=== PATIENT | female | born 1975 | race Caucasian/White ===

== ENCOUNTER → 2016-10-12 | Outpatient (CLI) | payer BC ==
[2016-10-12 11:58] LABS: THYROID STIMULATING HORMONE 3.63 uIu/ml (0.300-4.500)
== END | disposition home or self-care (01) ==
LOC: C.LAB 08:29
PROVIDERS: ATTEND Internal Medicine Endocrinology, Diabetes & Metabolism
DX: E89.0 Postprocedural hypothyroidism (principal)

== ENCOUNTER → 2016-11-23 | Outpatient (CLI) | payer BC ==
--- NOTE | 2016-11-23 08:18 | DIAGNOSTIC IMAGING REPORT ---
ULTRASOUND OF THE THYROID GLAND CLINICAL HISTORY: Thyroid cancer status post left-sided thyroidectomy. COMPARISON STUDY: Thyroid ultrasound dated 11/23/2013. TECHNIQUE: Real-time, grayscale, and color flow sonography of the thyroid gland is performed utilizing a high-frequency linear transducer. Images are reviewed in the transverse and longitudinal planes. FINDINGS: Right lobe: The right lobe of the thyroid gland is normal in size and slightly heterogeneous in echotexture, measuring 4.8 x 1.4 x 1.9 cm. No lesions identified within the right thyroid lobe. Left lobe: Surgically absent. There is no evidence of recurrent or residual thyroid tissue in the operative bed Isthmus: The remaining thyroid isthmus appears atrophic and measures up to 0.2 cm in AP diameter. Soft tissues: No regional lymphadenopathy is identified. IMPRESSION: 1. The left thyroid lobe is surgically absent. No recurrent/residual soft tissue is identified in the operative bed. 2. The right thyroid lobe appears slightly heterogeneous but is otherwise normal in appearance. 3. No regional lymphadenopathy is seen. Electronically signed by: Alexey Martinez M.D. 11/23/2016 8:16 AM Dictated Date/Time: 11/23/2016 8:14 AM
== END | disposition home or self-care (01) ==
LOC: C.ULTR 07:36
PROVIDERS: ATTEND Physician Assistant
DX: E89.0 Postprocedural hypothyroidism (principal); C73 Malignant neoplasm of thyroid gland

== ENCOUNTER → 2016-12-14 | Outpatient (CLI) | payer BC ==
[2016-12-14 17:13] LABS: THYROID STIMULATING HORMONE 0.693 uIu/ml (0.300-4.500)
== END | disposition home or self-care (01) ==
LOC: C.LAB 15:14
PROVIDERS: ATTEND Physician Assistant
DX: E89.0 Postprocedural hypothyroidism (principal)

== ENCOUNTER → 2016-12-21 | Outpatient (CLI) | payer BC ==
--- NOTE | 2016-12-21 14:26 | MAMMOGRAPHY REPORT ---
BILATERAL DIGITAL DIAGNOSTIC MAMMOGRAM TOMOSYNTHESIS WITH CAD AND TARGETED BILATERAL ULTRASOUND: 12/21 CLINICAL HISTORY: 41-year-old woman presents for bilateral screening mammography and to follow-up be nign-appearing solid versus cystic masses throughout the right breast. TECHNIQUE: Breast tomosynthesis in addition to standard 2D mammography was performed. Current study was also evaluated with a Computer Aided Detection (CAD) system. COMPARISON: Comparison is made to exams dated: 06/23/2016 ultrasound, 06/23/2016 mammogram, 11/01/2015 ultrasound, 11/01/2015 mammogram, and 09/27/2015 mammogram - [facility]. BREAST COMPOSITION: The tissue of both breasts is heterogeneously dense, which may obscure small ma sses. FINDINGS: There are multiple bilateral circumscribed masses scattered throughout the breasts, many o f which appear similar in size comparing to prior mammograms. In particular, 2 circumscribed oval m asses in the medial right breast appears stable dating back to 09/27/2015. There are scattered bila teral benign-appearing punctate microcalcifications. No suspicious spiculated or irregular mass, ar chitectural distortion or cluster of suspicious microcalcifications is seen. Targeted ultrasound was performed throughout the left superior breast and right breast. In the 12:0 0 periareolar right breast, there is a hypoechoic solid lobulated circumscribed mass measuring 5.6 x 4.9 x 7.8 mm, previously 6.9 x 6.5 mm. In the 1:00 right breast, 4 cm from the nipple, a hypoechoi c solid-appearing lobulated and circumscribed mass measures 5.7 x 5.5 x 5.5 mm, previously 6.9 x 6.5 mm. Another hypoechoic solid versus cystic mass in the 2:00 right breast, 2 cm from the nipple, me asures 5.2 x 4.9 x 5.1 mm, previously 5.5 x 5.2 mm and labeled 3:00 right breast, 3 cm from the nipp le. A dominant circumscribed parallel hypoechoic solid mass in the 5:00 right breast, 6 cm from the nipple, measures 12.7 x 9.0 x 10.1 mm, this previously measured 12.4 x 7.0 x 12.7 mm on 11/01/2015. Another hypoechoic solid versus cystic mass in the 6:00 right breast, 1 cm from the nipple measure s 4.6 x 4.6 x 4.3 mm, previously 5.5 x 6.3 mm. A cystic lobulated mass in the 9:00 right breast, 7 cm from the nipple, measures 8.8 x 6.0 x 9.6 mm. Other anechoic benign simple cysts are identified throughout the 10:00 and 8:00 axes. There is an isoechoic circumscribed solid appearing mass in the 10:00 right breast, 7 cm from the nipple, measuring 6.1 x 3.3 x 6.8 mm. In the left 9:00 and 10:00 axes, no discrete solid or cystic mass is seen. In the 12:00 left breast , 2 cm from the nipple, there is a circumscribed parallel nearly anechoic cystic appearing mass valeriy uring 4.8 x 3.2 mm. In the 1:00 left breast, 5 cm from the nipple, a lobulated anechoic benign simp le cyst measures 6.3 x 4.6 mm. In the 1:30 left breast, 6 cm from the nipple, a circumscribed hypoe choic cystic-appearing mass measures 8.4 x 6.2 x 9.3 mm. Another anechoic simple cyst is identified in the 1:30 left breast, 6 cm from the nipple, measuring 5.7 mm. All of the masses identified in t he left breast appear clearly cystic in nature and most compatible with fibrocystic changes. IMPRESSION: ACR-BI-RADS CATEGORY 3: PROBABLY BENIGN, TARGETED ULTRASOUND ACR-BI-RADS CATEGORY 3: MO OBABLY BENIGN There are probable fibrocystic changes bilaterally in the breasts. However within the right breast, there are a few benign appearing solid masses. All of the masses documented within the right breas t including the 10:00, 12:00, 1:00, 2:00, 3:00, 5:00 and 6:00 axes appear stable to decreased in siz e, therefore most likely benign. However given the possible solid nature, at least 2 years of stabi lity are needed to confirm benignity, and another 12 month follow-up targeted ultrasound is recommen ded. Bilateral screening mammography is also due at that time and tomosynthesis images are recommen ded, given the multiple bilateral masses and heterogeneously dense breasts. These results and recommendations were discussed with the patient at the time of the exam. Approximately 10% of breast cancers are not detected with mammography. A negative mammographic repor t should not delay biopsy if a clinically suggestive mass is present. Cathryn Prado M.D. ay/:12/21/2016 12:47:48 Boom Cat Operator: Leann Adames, [facility] letter sent: Follow Up Recommended 3 BI-RADS Code: ACR-BI-RADS Category 3: Probably Benign Ultrasound BI-RADS: ACR-BI-RADS Category 3: P robably Benign
== END | disposition home or self-care (01) ==
LOC: C.MAMM 08:40
PROVIDERS: ATTEND Family Medicine
DX: N63 Unspecified lump in breast (principal)

== ENCOUNTER → 2017-04-15 | Outpatient (CLI) | payer BC ==
[2017-04-15 11:35] LABS: THYROID STIMULATING HORMONE 1.52 uIu/ml (0.300-4.500)
== END | disposition home or self-care (01) ==
LOC: C.LAB 09:49
PROVIDERS: ATTEND Physician Assistant
DX: E89.0 Postprocedural hypothyroidism (principal)

== ENCOUNTER → 2017-05-25 | Outpatient (CLI) | payer OTHER, BC ==
--- NOTE | 2017-05-25 16:21 | DIAGNOSTIC IMAGING REPORT ---
L FOOT MIN 3 VIEWS ROUTINE CLINICAL HISTORY: Left foot pain status post trauma COMPARISON: None DISCUSSION: There is a comminuted fracture involving the tuft of the distal phalanx of the fourth toe. Fracture fragments are distracted x 3 mm. There is no dislocation. There is Achilles insertional spurring IMPRESSION: Comminuted fracture involving the tuft of the distal phalanx of the fourth toe. Electronically signed by: Deric Proctor M.D. 05/25/2017 4:20 PM Dictated Date/Time: 05/25/2017 4:19 PM
== END | disposition home or self-care (01) ==
LOC: C.RAD1850 15:50
PROVIDERS: ATTEND Nurse Practitioner Adult Health
DX: S92.532A Displaced fracture of distal phalanx of left lesser toe(s), initial encounter for closed fracture (principal); X58.XXXA Exposure to other specified factors, initial encounter

== ENCOUNTER → 2017-06-02 | Outpatient (CLI) | payer OTHER, BC ==
--- NOTE | 2017-06-02 09:19 | DIAGNOSTIC IMAGING REPORT ---
L TOE(S) MIN 2 VIEWS HISTORY: 41 years-old Female LEFT 4TH TOE FX fracture of the left fourth toe. Follow-up study. COMPARISON: Left foot radiographs 05/25/2017 TECHNIQUE: 3 views of the left fourth toe FINDINGS: Comminuted fracture involving the tuft of the fourth distal phalanx is again seen with approximately 1 mm distal displacement and 2 mm medial displacement. Moderate associated soft tissue swelling. No significant healing compared to the prior study of 05/25/2017. No additional acute fracture or dislocation. IMPRESSION: No change or significant healing identified involving the comminuted mildly displaced fracture of the fourth distal phalangeal tuft. The above report was generated using voice recognition software. It may contain grammatical, syntax or spelling errors. Electronically signed by: Kamron Elizabeth M.D. 06/02/2017 9:18 AM Dictated Date/Time: 06/02/2017 9:16 AM
== END | disposition home or self-care (01) ==
LOC: C.RDSM 12:06
PROVIDERS: ATTEND Physician Assistant
DX: S92.535A Nondisplaced fracture of distal phalanx of left lesser toe(s), initial encounter for closed fracture (principal); X58.XXXA Exposure to other specified factors, initial encounter

== ENCOUNTER → 2017-07-02 | Outpatient (CLI) | payer OTHER, BC ==
--- NOTE | 2017-07-02 15:01 | DIAGNOSTIC IMAGING REPORT ---
L TOE(S) MIN 2 VIEWS CLINICAL HISTORY: 41 years-old Female presenting with F/U LEFT 4TH TOE FX. TECHNIQUE: Frontal, oblique, and lateral views of the left fourth toe were obtained. COMPARISON: 06/02/2017. FINDINGS: Moderate comminuted fracture of the distal phalanx of the left fourth toe. Fragmentation primarily involves the tuft though a small osseous fragment is also evident along the lateral base. Mild soft tissue swelling likely present. No malalignment at the distal interphalangeal joint. IMPRESSION: Comminuted fracture of the distal phalanx of the left fourth toe. No malalignment at the DIP. Electronically signed by: Eliot Garcia M.D. 07/02/2017 3:00 PM Dictated Date/Time: 07/02/2017 2:58 PM
== END | disposition home or self-care (01) ==
LOC: C.RDSM 10:30
PROVIDERS: ATTEND Physician Assistant
DX: S92.532D Displaced fracture of distal phalanx of left lesser toe(s), subsequent encounter for fracture with routine healing (principal); X58.XXXD Exposure to other specified factors, subsequent encounter

== ENCOUNTER 2017-07-28 17:01 | Emergency (ER) | payer OTHER, BC ==
[~2017-07-28] VITALS: Ht 167.6 cm; Wt 92.7 kg
[2017-07-28 17:16] VITALS: TEMP 36.9; Ht 167.6 cm; Wt 92.7 kg
[2017-07-28] MEDS ORDERED: LIDOCAINE/EPINEPHRINE 1% 20 ML VIAL INFIL STA (17:29)
[2017-07-28] MEDS ORDERED: DIPHTHERIA/TETANUS/PERTUSSIS 0.5 ML SYR/VIAL IM. ONE (17:30)
[2017-07-28] MEDS ORDERED: LEVO100T PO (17:51)
--- NOTE | 2017-07-28 18:37 | EMERGENCY ROOM VISIT NOTE ---
ED Visit Note First contact with patient: 17:19 2CHIEF COMPLAINT: Hand laceration HISTORY OF PRESENT ILLNESS: This 42-year-old female patient presents to the emergency department approximately one hour after cutting the left posterior hand at work. 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 She states her hand slipped, and she sustained the laceration on the posterior hand. The patient was seen at occupational health, and was sent here as they were uncertain if the patient may have sustained a tendon injury. The bleeding has stopped. Denies weakness or numbness of the hand or fingers. The patient does have full range of motion of all fingers. The patient rates the pain as stinging and 4/ 10. The patient denies any other injuries. The patient's Tetanus shot is not up to date. REVIEW OF SYSTEMS: A 6 system review of systems was completed with positives and pertinent negatives listed in the HPI. ALLERGIES: None MEDICATIONS: Synthroid PMH: Hypothyroidism SOCIAL HISTORY: The patient lives locally with family. She denies drug use. She admits to regular alcohol and tobacco use. PHYSICAL EXAM: Vital Signs: Reviewed Nurse's notes, vital signs stable. GENERAL : This is a 42-year-old white female, in no acute distress, well-developed, well -nourished. SKIN: There is a 2.5 cm long laceration on the posterior aspect of the left hand. The edges gape apart with traction. There is no foreign material in the wound and it looks clean. There is minimal active bleeding. No deep structures such as tendons, bones, or significant blood vessels are seen in the base of the wound. Normal strength and movement of the fingers and wrist. Capillary refill less than 2 seconds. Normal sensation to light and sharp touch. EMERGENCY DEPARTMENT COURSE: I examined the patient. Verbal consent was obtained to perform the procedure. Using sterile technique the wound was cleansed with Betadine. The area was sterilely draped. 2 ml of 1% lidocaine with epinephrine was used to anesthetize the laceration on the hand. Once the patient was anesthetized, the wound was copiously irrigated under pressure with sterile saline. There were small pieces of metal within the wound. These were irrigated and debrided. The wound was explored and was as described above. The laceration was repaired using 6 simple interrupted 5-0 nylon sutures with the wound edges being well approximated. The patient tolerated the procedure well. Hemostasis was achieved. The area was cleaned with sterile saline and dressed with bacitracin ointment and bandage. The patient was given Tdap immunization. The patient was discharged home in good condition. I attest that I have personally reviewed the patient's current medication list. Patient was found to have normal blood pressure on screening and does not require follow-up. DIFFERENTIAL DIAGNOSIS: Laceration, tendon laceration, infection, fracture, foreign body, and others DIAGNOSIS: Hand laceration Current/Historical Medications Scheduled Levothyroxine Sodium (Synthroid), 100 MCG PO DAILY Allergies Coded Allergies: No Known Allergies (Unverified , 07/28/17) ? Vital Signs Date Time Temp Pulse Resp B/P (MAP) Pulse Ox O2 Delivery O2 Flow Rate FiO2 07/28/17 18:52 80 20 132/80 98 07/28/17 17:16 36.9 93 18 145/95 99 Room Air Medications Administered Medications (Trade) Dose Ordered Sig/Tena Route Start Time Stop Time Status Last Admin Dose Admin Lidocaine/ Epinephrine (Xylocaine/Epine 1% Inj) 20 ml ONE STAT INFIL 07/28/17 17:29 07/28/17 17:30 DC 07/28/17 17:40 20 ML Diphtheria/ Pertussis/Tetanus Vacc (Adacel Inj) 0.5 ml ONCE ONCE IM. 07/28/17 17:30 07/28/17 17:31 DC 07/28/17 17:47 0.5 ML Departure Information Impression Primary Impression: Laceration of hand Dispostion Home / Self-Care Condition GOOD Referrals Maricruz Rebolledo M.D. (PCP) Patient Instructions ED Laceration Ext Sutr Stap Tape, ED Laceration Hand, [facility] Additional Instructions You have received 6 sutures on your left hand. These sutures are NOT dissolvable and WILL need to be removed by a health care provider in 10-14 days. You can return to the Emergency Department or contact your Primary Care Provider to have the sutures removed. Your Worker's Comp providers may be able to remove the sutures. Please follow-up with them within the next week for re- check. Proper wound care is essential for adequate wound healing and infection prevention. You can shower and clean the wound with soap and water. Do not scour over the wound, pat dry with a towel. Do not submerse the wound (i.e. bathe or dish wash) until the sutures have been removed. You can use an antibiotic ointment with a dressing over the wound for the next 3-4 days. After this time you may leave the wound dry and open to the air. If crust develops over the wound you can use a Q-tip to apply a 1:1 peroxide:water solution to clean the wound. Look for signs of infection of the wound including: increased pain, swelling, foul discharge, streaking, or increased temperature. If any of these are noticed you should return to the Emergency Department or follow-up with Worker' s Compensation providers for further assessment and treatment. As with any laceration you may have received nerve damage to the surrounding tissues. This damage may or may not be permanent. You should keep the area covered with sunscreen for the first 6 months to 1 year when at risk for exposure to help minimize scarring. You can also use scar reducing creams or Vitamin E oil to help minimize scarring. For pain control, you can use the following [id number] medicines (if >12 yo): Ibuprofen(Motrin, Advil) may be used for fever or pain. Use 600mg every six hours as needed. Take with food. Avoid using more than 2400mg in a 24 hour period. Do not use 2400mg per day for more than three consecutive days without physician direction. Prolonged inappropriate use can lead to stomach upset or ulcers. (AND/OR) Acetaminophen(Tylenol) may be used for fever or pain. Use 1000mg every six hours as needed. Avoid using more than 3000mg in a 24 hour period. Return to the emergency department if your symptoms worsen despite treatment course outlined above. Problem Qualifiers Primary Impression: Laceration of hand Encounter type: initial encounter Foreign body presence: without foreign body Laterality: left Qualified Codes: S61.412A - Laceration without foreign body of left hand, initial encounter
[2017-07-28 18:52] VITALS: BP 132/80; PULSE 80; O2SAT 98
== END 2017-07-28 19:05 | disposition home or self-care (01) ==
LOC: C.EDB 17:02 → C.EDD 19:05
DX: S61.422A Laceration with foreign body of left hand, initial encounter (principal); W31.1XXA Contact with metalworking machines, initial encounter; Y99.0 Civilian activity done for income or pay; Z23 Encounter for immunization; E03.9 Hypothyroidism, unspecified; F17.200 Nicotine dependence, unspecified, uncomplicated; Z72.89 Other problems related to lifestyle

== ENCOUNTER 2017-08-10 12:50 | Emergency (ER) | payer OTHER, BC ==
[~2017-08-10] VITALS: Ht 167.6 cm; Wt 85.0 kg
[~2017-08-10 12:50] MED LIST: LEVO100T PO
[2017-08-10 12:58] VITALS: Ht 167.6 cm; Wt 85.0 kg
[2017-08-10 13:43] VITALS: BP 124/93; PULSE 88; TEMP 37.1; O2SAT 99
--- NOTE | 2017-08-11 10:22 | EMERGENCY ROOM VISIT NOTE ---
ED Visit Note First contact with patient: 13:26 CHIEF COMPLAINT: Suture removal. HISTORY OF PRESENT ILLNESS: Ms. Camacho is a 42-year-old white female who ambulates into the ED requesting suture removal. Patient reports she sustained a laceration to the posterior aspect of the left hand. She was seen at this emergency department and her wound was repaired with sutures. She reports since being discharged there has been no pain, swelling, redness, or drainage from the wound and he feels like the laceration is healing well. PHYSICAL EXAM: Vital Signs: Date Time Temp Pulse Resp B/P (MAP) Pulse Ox O2 Delivery O2 Flow Rate FiO2 08/10/17 13:43 37.1 88 18 99 08/10/17 12:58 37.1 88 18 124/93 99 Room Air General: 42-year-old female in no acute distress, nontoxic-appearing, afebrile and hemodynamically stable. Neurological: Awake, alert and oriented 3. Answering questions appropriately and following commands. Left Hand:: Clean dry and intact wound without signs of infection (erythema, swelling, tenderness, purulent drainage). ED COURSE: Patient is assessed as noted above. Patient's medication list was reviewed. 6 sutures were removed without any difficulty and there was no separation of the wound edges. Patient was educated about today's findings and instructed on her treatment plan ; she verbalizes understanding and agreement with this plan. DISPOSITION: Patient discharged home in stable condition. CLINICAL IMPRESSION: Suture removal; Well healing laceration. PLAN: Patient was encouraged to continue current wound care and watch for signs of infection. Patient was encouraged to follow-up with her PCP or return to the ED for signs of infection or any new/concerning symptoms.
== END 2017-08-10 13:44 | disposition home or self-care (01) ==
LOC: C.EDB 12:52 → C.EDD 13:44
DX: S61.412D Laceration without foreign body of left hand, subsequent encounter (principal); X58.XXXD Exposure to other specified factors, subsequent encounter

== ENCOUNTER → 2017-10-15 | Outpatient (CLI) | payer OTHER ==
--- NOTE | 2017-10-15 14:05 | DIAGNOSTIC IMAGING REPORT ---
LEFT FOURTH TOE 3 VIEWS CLINICAL HISTORY: F/U CLOSED LEFT 4TH TOE FRACTURE COMPARISON: None. DISCUSSION: Again evident is a comminuted fracture involving the tuft of the distal phalanx. Cortical irregularity involving the lateral base the distal phalanx is also evident remains unchanged. There is overlying soft tissue edema IMPRESSION: No change in the appearance of the comminuted fracture involving the distal phalanx. Electronically signed by: Deric Proctor M.D. 10/15/2017 2:03 PM Dictated Date/Time: 10/15/2017 2:02 PM
== END | disposition home or self-care (01) ==
LOC: C.RDSM 13:00
PROVIDERS: ATTEND Physician Assistant
DX: S92.532A Displaced fracture of distal phalanx of left lesser toe(s), initial encounter for closed fracture (principal); X58.XXXD Exposure to other specified factors, subsequent encounter